=== PATIENT | female | born 1935 | race Caucasian/White ===

== ENCOUNTER → 2016-07-11 | Outpatient (CLI) | payer MEDICARE ==
[~2016-07-11] MED LIST: AC500T; ASPI-345 PO; ASPI-860 PO; HYDR-22 PO; HYDR-3754 PO; METO25TA60 PO; MTP25TSR PO; NITR0.4T; NITR0.4T SL; NITR0.4T7 SL; ONDAN4ODT PO; TRAM-25 PO; TRM50T PO; [UNRECOGNIZED DRUG - CODE] PO
== END ==
LOC: LAB 07:55
PROVIDERS: ATTEND Nurse Practitioner Family
DX: E11.9 Type 2 diabetes mellitus without complications (principal)
CPT/HCPCS: 36415; 83036

== ENCOUNTER → 2016-09-11 | Outpatient (REF) | payer MEDICARE ==
[2016-09-11 09:47] LABS: BASOPHILS % (AUTO) 0 % (0-2); EOSINOPHILS # (AUTO) 0.1 10^3uL; EOSINOPHILS % (AUTO) 1 % (0-4); LYMPHOCYTES # (AUTO) 1.9 X10^3; MEAN CORPUSCULAR HEMOGLOBIN 30.4 PG (26.0-34.0); MEAN CORPUSCULAR HGB CONC 33.6 g/dL (31.0-37.0); MEAN CORPUSCULAR VOLUME 91 FL (80-100); MEAN PLATELET VOLUME 10.1 FL (6.0-9.5); MONOCYTES # (AUTO) 0.9 X10^3; MONOCYTES % (AUTO) 9 % (3-11); NEUTROPHILS # (AUTO) 6.5 X10^3; NEUTROPHILS % (AUTO) 69 % (51-67); PLATELET COUNT 215 10^3uL (150-450); WHITE BLOOD COUNT 9.37 10^3uL (4.0-11.0)
[2016-09-11 09:48] LABS: CLARITY,URINE Clear; COLOR,URINE Yellow; GLUCOSE, URINE (UA) Negative (Negative); LEUKOCYTE ESTERASE, URINE Negative (Negative); PH,URINE 5.5 (5.0 - 8.0); UROBILINOGEN,URINE 0.2 mg/dL (0.2-1.0)
[2016-09-11 09:50] LABS: BILIRUBIN,URINE 1+ (Negative)
[2016-09-11 09:57] LABS: RBC,URINE 0-2 /HPF; URINE CENTRIFUGED VOLUME <10mL Unspun
[2016-09-11 10:00] LABS: ALBUMIN 4.3 g/dL (3.4-5.0); ANION GAP 14.2 MEQ/L (3-15); TOTAL PROTEIN 7.5 g/dL (6.4-8.5)
[2016-09-11 10:31] LABS: ERYTHROCYTE SEDIMENTATION RT* 24 mm/hr (0-23)
== END ==
LOC: LAB 09:34
PROVIDERS: ATTEND Nurse Practitioner Family
DX: R10.32 Left lower quadrant pain (principal)
CPT/HCPCS: 80053; 81003; 81015; 85025; 85652; 86140

== ENCOUNTER → 2016-10-13 | Outpatient (CLI) | payer MEDICARE | LOC: LAB 08:35 | PROVIDERS: ATTEND Nurse Practitioner Family | DX: E11.9 Type 2 diabetes mellitus without complications (principal) | CPT/HCPCS: 36415; 83036 ==